=== PATIENT | female | born 1970 | race Caucasian/White ===

== ENCOUNTER 2022-11-10 08:32 | Day surgery (SDC) | payer OTHER ==
[~2022-11-10] VITALS: Ht 170.2 cm; Wt 68.0 kg
[2022-11-10] MEDS ORDERED: ePHEDrine 50 MG/ML VIAL ONE (11:19)
[2022-11-10] MEDS ORDERED: PROPOFOL 200 MG/20 ML VIAL IV ONE ×2 (11:19)
[2022-11-10] MEDS ORDERED: LABETALOL 20 MG/4 ML VIAL IVP PRN (11:30)
[2022-11-10] MEDS ORDERED: hydrALAZINE 20 MG/ML VIAL IVP PRN (11:30)
[2022-11-10] MEDS ORDERED: LACTATED RINGERS 1,000 ML IV SCH (11:30)
== END 2022-11-10 13:50 | disposition home or self-care (01) ==
LOC: MDS 08:32 → MMU 08:33 → MDS 13:50
PROVIDERS: ATTEND Internal Medicine Gastroenterology
DX: Z12.11 Encounter for screening for malignant neoplasm of colon (principal); K63.5 Polyp of colon; Z80.0 Family history of malignant neoplasm of digestive organs; F32.A Depression, unspecified; F43.10 Post-traumatic stress disorder, unspecified; F41.9 Anxiety disorder, unspecified; Z79.899 Other long term (current) drug therapy
CPT/HCPCS: 45380; 45385; J2704